=== PATIENT | female | born 1975 | race Caucasian/White ===

== ENCOUNTER 2016-07-22 15:09 | Emergency (ER) | payer MEDICARE, BC ==
[~2016-07-22] VITALS: Wt 65.0 kg
[~2016-07-22 15:09] MED LIST: ARIP15TA2; CLON2TAB15; LAMO200T18; SERT100T; TOPI15CA
[2016-07-22] MEDS ORDERED: PSEU30TA38 PO (15:42)
[2016-07-22] MEDS ORDERED: FLUT9.9S NASAL (15:42)
[2016-07-22] MEDS ORDERED: BENZ100C70 PO (15:42)
[2016-07-22] MEDS ORDERED: D-ME473S2 PO (15:42)
[2016-07-22] MEDS ORDERED: ACET325T33 PO (15:42)
--- NOTE | 2016-07-22 17:46 | ERD ---
DATE OF SERVICE: HISTORY OF PRESENT ILLNESS: The patient is a 41-year-old female coming in complaining of cough, con gestion, sore throat for 4 days. She states she had a documented fever of 100.5 at home. She denie s taking medications for her symptoms. Yesterday, she took Mucinex. She states she has had a produ ctive cough. She does not feel short of breath. She has no headaches, no neck pain. MEDICAL HISTORY: Degenerative disk disease, bipolar disorder, borderline personality disorder, and bronchitis. ALLERGIES TO MEDICATIONS: DENIES. SURGICAL HISTORY: Gastric sleeve, tubal ligation, and cholecystectomy. SOCIAL HISTORY: Smokes 1 cigarette a day. REVIEW OF SYSTEMS: A 12-point review of systems was done. Refer to HPI for positives, all other sy stems negative. PHYSICAL EXAMINATION: VITAL SIGNS: Temperature is 98.5, pulse is 87, blood pressure is 131/85, respiratory rate 17, O2 sa turation 99% on room air. Pain intensity 8/10. GENERAL: The patient is well-appearing, well-nourished, no acute distress. HEART: Regular rate and rhythm. No murmurs, clicks, rubs, or gallops. No S3 or S4. CHEST: Clear to auscultation bilaterally. There are no rales, wheezes, or rhonchi. HEENT: Atraumatic. Conjunctivae are pink. Pupils equal, round, and reactive to light. There is n o scleral icterus. Tympanic membranes clear bilaterally. Oropharynx clear. No nystagmus or photop hobia. ABDOMEN: Soft, nontender and nondistended. Good bowel sounds. No rebound or guarding. No gross p eritonitis. No gross organomegaly or masses. No Hughes sign or McBurney point tenderness. SKIN: There is no apparent rash or petechiae. The skin is warm and dry. DIAGNOSIS: Upper respiratory infection. MEDICAL DECISION MAKING: I have low suspicion for pneumonia. The patient's breath sounds are withi n normal limits. Oxygen saturation 99% on room air. The patient is nontoxic appearing. Low suspic ion for bacterial HEENT infection, as exam is nonconcerning. Low suspicion for meningitis or sepsis . Low suspicion for pneumonia. DISCHARGE: The patient is discharged stable. The patient is given a prescription for Sudafed, Flon ase, Tessalon, promethazine, and Tylenol and told to follow up with primary care within 1 to 2 days for reevaluation. The patient was told if symptoms progress or worsen to return to the ER. All oth er questions answered at time of discharge. Discharge summary given at the time of departure. The patient understood and complied with plan. Dictated By: ELDA PARRA for CHAI KOWALSKI/WANDY Conf#: [id number] DID#: [id number]
== END 2016-07-22 15:42 | disposition home or self-care (01) ==
LOC: E/R 15:09
DX: J06.9 Acute upper respiratory infection, unspecified (principal)
CPT/HCPCS: 99284

== ENCOUNTER 2017-03-16 23:53 | Emergency (ER) | payer MEDICARE, BC ==
[~2017-03-16] VITALS: Ht 160 cm; Wt 62.5 kg
[~2017-03-16 23:53] MED LIST changes: +ACET325T33 PO; +BENZ100C70 PO; +D-ME473S2 PO; +FLUT9.9S NASAL; +PSEU30TA38 PO
[2017-03-17 00:24] VITALS: Ht 160 cm; Wt 62.5 kg
[2017-03-17] MEDS ORDERED: ALBU8.5H3 INH (03:30)
--- NOTE | 2017-03-17 03:46 | ERD ---
ER Documentation Chief Complaint Date/Time DATE: 03/17/17 TIME: 03:43 Chief Complaint WOUND DRESSING CHANGE ON BACK +NEEDS MED REFILL ON INHALER HPI 41-year-old female presents here in emergency department for a wound dressing change on her back, patient had a stimulator placed in her back for her back pain, wound care nurse came yesterday to have the dressing changed but it became loose, somewhat or when inside it, patient is here today for possibly changing of the wound dressing. Patient denies any pain on affected area, patient denies any discharge coming from the area. Patient denies any fever or chills. Patient also wants a refill of her albuterol. Patient does not have any wheezing at this time. Patient does not have any cough at this time. Patient does not have any other symptoms. ROS All systems reviewed and are negative except as per history of present illness. Medications Home Meds Active Scripts Albuterol Sulfate* (Proair HFA*) 8.5 Gm Hfa.aer.ad, 2 PUFF INH Q4H Y for WHEEZING AND SOB, #1 INHALER Prov:ARIS AWAN NP 03/17/17 Acetaminophen* (Tylenol*) 325 Mg Tablet, 1 TAB PO Q6 Y for PAIN AND OR ELEVATED TEMP, #20 TAB Prov:NAY KENNEDY PA-C 07/22/16 Dextromethorphan Hb-Promethazine Hcl* (Promethazine DM* Syrup) 473 Ml Syrup, 5 ML PO Q6 Y for COUGH, #100 ML Prov:NAY KENNEDY PA-C 07/22/16 Benzonatate* (Tessalon Perle*) 100 Mg Capsule, 100 MG PO Q8H Y for COUGH, #30 CAP Prov:NAY KENNEDY PA-C 07/22/16 Pseudoephedrine Hcl* (Pseudoephedrine Hcl*) 30 Mg Tablet, 30 MG PO Q6 Y for CONGESTION, #30 TAB Prov:NAY KENNEDY PA-C 07/22/16 Fluticasone Propionate (Flonase Allergy Relief) 9.9 Ml [place].susp, 1 SPRAY NASAL DAILY, #1 BOTTLE TO EACH NOSTRIL Prov:NAY KENNEDY PA-C 07/22/16 Reported Medications Clonazepam (Klonopin) 2 Mg Tablet, 3X DAILY 12/07/11 Sertraline Hcl* (Zoloft*) 100 Mg Tablet, 2X DAILY 12/07/11 Topiramate (Topamax) 15 Mg Cap.sprink, DAILY 12/07/11 Aripiprazole* (Abilify*) 15 Mg Tablet, DAILY 12/07/11 Lamotrigine* (Lamictal*) 200 Mg Tablet, DAILY 12/07/11 Allergies Allergies: Coded Allergies: No Known Allergy (Unverified , 03/17/17) PMhx/Soc History of Surgery: Yes (gallbladder removal, tubal ligation) Anesthesia Reaction: No Hx Neurological Disorder: Yes (Seizure, borderline personality disorder) Hx Respiratory Disorders: Yes (Asthma) Hx Cardiac Disorders: No Hx Psychiatric Problems: Yes (Bipolar) Hx Miscellaneous Medical Probl: No Hx Alcohol Use: Yes (Last use 03/29/12, drrinking beer) Hx Substance Use: Yes (pills elavil, seroquel, klonopin, xanax) Hx Tobacco Use: Yes Smoking Status: Current some day smoker FmHx Family History: No coronary disease, No diabetes, No other Physical Exam Vitals Vital Signs Date Time Temp Pulse Resp B/P Pulse Ox O2 Delivery O2 Flow Rate FiO2 03/17/17 00:24 97.5 88 20 108/53 99 Physical Exam GENERAL: The patient is well developed and appropriate for usual state of health, in no apparent distress. CHEST: Clear to auscultation bilaterally. There are no rales, wheezes or rhonchi. HEART: Regular rate and rhythm. No murmurs, clicks, rubs or gallops. No S3 or S4. ABDOMEN: Soft, nontender and nondistended. Good bowel sounds. No rebound or guarding. No gross peritonitis. No gross organomegaly or masses. No Hughes sign or McBurney point tenderness. BACK: No midline or flank tenderness. EXTREMITIES: Equal pulses bilaterally. There is no peripheral clubbing, cyanosis or edema. No focal swelling or erythema. Full range of motion. Grossly neurovascularly intact. NEURO: Alert and oriented. Cranial nerves 2-12 intact. Motor strength in all 4 extremities with 5/5 strength. Sensation grossly intact. Normal speech and gait. SKIN: Noted dressing in place without any discharge, no redness or swelling surrounding the ones on the upper back and the right buttock area, healing well. There is no apparent rash or petechia. The skin is warm and dry. HEMATOLOGIC AND LYMPHATIC: There is no evidence of excessive bruising or lymphedema. No gross cervical, axillary, or inguinal lymphadenopathy. Procedures/MDM Medical decision making: Patient is here for a wound dressing change, this was changed without any difficulty, no symptoms of infection noted in the wound. No symptoms of any abscess at this time. Patient also was given a refill of albuterol, does not have any wheezing at this time. No symptoms of any acute exacerbation of her asthma. Prescription was given for albuterol, patient is advised to follow with primary care doctor in 3 days for reevaluation of symptoms. Patient is advised to return to emergency department for any worsening symptoms. Disposition: Home. Stable. Departure Diagnosis: Primary Impression: Medication refill Additional Impression: Change or removal of wound dressing Condition: Stable Patient Instructions: Albuterol Sulfate Pressurized inhalation, suspension ARIS AWAN NP Mar 17, 2017 03:46
== END 2017-03-17 03:45 | disposition home or self-care (01) ==
LOC: FTE 23:53
DX: Z76.0 Encounter for issue of repeat prescription (principal); J45.909 Unspecified asthma, uncomplicated; F17.210 Nicotine dependence, cigarettes, uncomplicated
CPT/HCPCS: 99281

== ENCOUNTER 2017-09-26 02:39 | Emergency (ER) | END 2017-09-26 05:27 | disposition home or self-care (01) ==

== ENCOUNTER 2017-12-09 23:27 | Emergency (ER) | END 2017-12-10 01:25 | disposition left against medical advice (07) ==

== ENCOUNTER 2017-12-16 23:41 | Emergency (ER) | END 2017-12-17 03:50 | disposition home or self-care (01) ==

== ENCOUNTER 2018-01-19 02:19 | Emergency (ER) | END 2018-01-19 03:35 | disposition home or self-care (01) ==

== ENCOUNTER 2018-09-30 15:11 | Emergency (ER) | payer BC, OTHER ==
[~2018-09-30 15:11] MED LIST changes: +ACET500C5 PO; +ALBU8.5H8 INH; -ARIP15TA2; +ARIP15TA3; +AZIT250T PO; +BENZ-6 PO; -BENZ100C70 PO; +CETI10CA PO; +HYDR-4011 PO; +IBUP-1542 PO; +IBUP-1561 PO; +IPRA3AMP29 INH; -LAMO200T18; +LAMO200T3; +PROM5SYR2 PO
== END 2018-09-30 16:18 | disposition left against medical advice (07) ==
LOC: E/R 15:11
DX: Z53.21 Procedure and treatment not carried out due to patient leaving prior to being seen by health care provider (principal)